=== PATIENT | male | born 1935 | race Caucasian/White ===

== ENCOUNTER 2023-12-14 11:51 | Emergency (ER) | payer OTHER, SELFPAY ==
[2023-12-14 11:56] VITALS: BP 176/105
[2023-12-14 13:49] LABS: % Basophils 0.7 % (0-2); % Eosinophils 1.3 % (0-6); % Immature Granulocytes 0.4 % (0-0.5); % Lymphocytes 16.5 % (20.5-51.1); % Monocytes 11.1 % (1.7-9.3); Absolute Basophils 0.1 10^3/uL (0-0.2); Absolute Eosinophils 0.1 10^3/uL (0-0.7); Absolute Lymphocytes 1.2 10^3/uL (1.2-3.4); Absolute Monocytes 0.8 10^3/uL (0.1-0.6); Absolute Neutrophils 4.9 10^3/uL (1.4-6.5); Mean Corp Hgb Conc. 33.3 g/dL (33.0-37.0); Mean Corpuscular Hgb 29.8 pg (27.0-31.0); Mean Corpuscular Volume 89.3 fL (80.0-94.0); Mean Platelet Volume 11.7 fL (7.4-10.4); Nucleated Red Blood Cells % 0 % (-); Platelet Count 166 10^3/uL (130-400); Red Blood Cell Count 5.04 10^6/uL (4.70-6.10); Red Cell Dist. Width 12.6 % (11.5-14.5)
[2023-12-14 14:29] LABS: ALT (SGPT) 29 U/L (0-50); AST (SGOT) 29 U/L (17-59); Albumin 4.7 g/dl (3.5-5.0); Alkaline Phosphatase 79 U/L (38-126); Blood Urea Nitrogen 34 mg/dl (9-20); Carbon Dioxide 25 mmol/L (22-30); Chloride 103 mmol/L (98-107); Glucose 167 mg/dl (70-99); Potassium 4.6 mmol/L (3.5-5.1); Sodium 142 mmol/L (135-145); Total Bilirubin 0.5 mg/dl (0.2-1.3); Total Protein 7.2 g/dl (6.3-8.2); eGFR 44.78
--- NOTE | 2023-12-14 14:36 | ED.GENMED ---
History of Present Illness
<SANDER Garcia - Last Filed: 12/15/23 07:09>
General
Chief Complaint: Cardiac Symptoms
Source: patient
Exam Limitations: none
Time Seen by Provider: 12/14/23 14:22
Nursing documentation reviewed up to this point in time: agreed with
History of Present Illness
History of Present Illness:
88-year-old male past medical history DE diabetes presents to the ER for evaluation. Patient was yesterday he was standing and suddenly developed brief sweating which lasted for seconds at a time and he checked his radial pulse and it was very
rapid. He had no pain. He had no further symptoms however wanted pt to be evaluated. HE had no associated chest pain with s/s. Pt reports he could tell his pulse was rapid by feeling his wrist but he did not have palpitations in his chest.
Past History
<SANDER Garcia - Last Filed: 12/15/23 07:09>
Past History
ED Past Medical History: CAD, HTN and Hypercholesterolemia
ED Past Surgical History: Cardiac
Social History
Tobacco: Non-smoker
Alcohol: Other
Drug: None
Personal:
Living: with family
Employment: Retired
Family History
Family History: Unable to obtain
Review of Systems
<SANDER Garcia - Last Filed: 12/15/23 07:09>
Review of Systems
Allergies reviewed?: Yes
All Other Systems: ROS reviewed and negative except as documented in HPI and ROS
Constitutional: Reports no symptoms
Respiratory: Reports no symptoms
Cardiac: Reports other ('rapid pulses' ); Denies chest pain or syncope
ABD/GI: Reports no symptoms
: Reports no symptoms
Musculoskeletal: Reports no symptoms
Skin: Reports no symptoms
Neurological: Reports no symptoms
Hematologic/Lymphatic: Reports no symptoms
Psychiatric: Reports no symptoms
Phy Exam
<SANDER Garcia - Last Filed: 12/15/23 07:09>
General Physical Exam
General Presentation: no apparent distress
General age: appears stated age
General Skin: warm and dry
General Habitus: elderly
General Mental: alert
General Hydration: appears well hydrated
Cardiovascular Exam
Cardiovascular Exam: regular rate/rhythm, no murmur and normal peripheral pulses
Pulmonary Exam
Pulmonary Exam: lungs clear and no respiratory distress
Neurological Exam
Neurological Exam: alert and oriented x3
Musculoskeletal Exam
Musculoskeletal Exam: full ROM
Skin Exam
Skin Exam: normal color and warm/dry
Psychiatric Exam
Psychiatric Exam: normal mood/affect
Course
<SANDER Garcia - Last Filed: 12/15/23 07:09>
Orders/Labs/Results
Orders:
Orders
12/14/23 11:52
Electrocardiogram (*1) Urgent
Reason for Study: Chest Pain
EKG- Treatment ONCE
12/14/23 13:42
CMP [Comprehensive Metabolic Panel] Urgent
Complete Blood Count/With Diff Urgent
12/14/23 16:23
Add On- LAB Urgent
Tests Added?: troponin
12/14/23 16:24
0.9% Sodium Chloride 1000 ml [Nss] 1,000 ml IV BOLUS
12/14/23 16:37
Vital Signs- Treatment ONCE
Frequency: Once
12/14/23 16:52
Troponin I Urgent
Comment: COLLECT. NO GREEN TOP IN LAB.
Abnormal Lab Results
12/14/23
13:42
MPV 11.7 H fL
(7.4-10.4)
Absolute Monos (auto) 0.8 H 10^3/uL
(0.1-0.6)
Lymphocytes % 16.5 L %
(20.5-51.1)
Monocytes % 11.1 H %
(1.7-9.3)
BUN 34 H mg/dl
(9-20)
Creatinine 1.5 H mg/dL
(0.7-1.3)
Glucose 167 H mg/dl
(70-99)
12/14/23 13:42
12/14/23 13:42
Vital Signs
Initial and Last Documented VS:
Initial Vital Signs
Temp Pulse Resp BP Pulse Ox
97.8 F 96 16 176/105 97
12/14/23 11:56 12/14/23 11:56 12/14/23 11:56 12/14/23 11:56 12/14/23 11:56
Last Documented Vital Signs
Temp Pulse Resp BP Pulse Ox
97.8 F 68 16 158/96 98
12/14/23 11:56 12/14/23 18:00 12/14/23 18:00 12/14/23 18:00 12/14/23 18:00
<Jonathon Bruce PA-C - Last Filed: 12/14/23 19:47>
Orders/Labs/Results
Orders:
Orders
12/14/23 11:52
Electrocardiogram (*1) Urgent
Reason for Study: Chest Pain
EKG- Treatment ONCE
12/14/23 13:42
CMP [Comprehensive Metabolic Panel] Urgent
Complete Blood Count/With Diff Urgent
12/14/23 16:23
Add On- LAB Urgent
Tests Added?: troponin
12/14/23 16:24
0.9% Sodium Chloride 1000 ml [Nss] 1,000 ml IV BOLUS
12/14/23 16:37
Vital Signs- Treatment ONCE
Frequency: Once
12/14/23 16:52
Troponin I Urgent
Comment: COLLECT. NO GREEN TOP IN LAB.
Abnormal Lab Results
12/14/23
13:42
MPV 11.7 H fL
(7.4-10.4)
Absolute Monos (auto) 0.8 H 10^3/uL
(0.1-0.6)
Lymphocytes % 16.5 L %
(20.5-51.1)
Monocytes % 11.1 H %
(1.7-9.3)
BUN 34 H mg/dl
(9-20)
Creatinine 1.5 H mg/dL
(0.7-1.3)
Glucose 167 H mg/dl
(70-99)
12/14/23 13:42
12/14/23 13:42
Vital Signs
Initial and Last Documented VS:
Initial Vital Signs
Temp Pulse Resp BP Pulse Ox
97.8 F 96 16 176/105 97
12/14/23 11:56 12/14/23 11:56 12/14/23 11:56 12/14/23 11:56 12/14/23 11:56
Last Documented Vital Signs
Temp Pulse Resp BP Pulse Ox
97.8 F 68 16 158/96 98
12/14/23 11:56 12/14/23 18:00 12/14/23 18:00 12/14/23 18:00 12/14/23 18:00
<SANDER Garcia - Last Filed: 12/15/23 07:09>
MDM/Problems Addressed
MDM/Problems Addressed:
Patient is a an 88-year-old male who as documented had a brief episode of sweating yesterday and then felt his pulse which was rapid. He reports initially he was concerned about his high heart rate though he did not necessarily feel palpitations.
He had no chest pain. That resolved quickly yesterday and he has had no symptoms but found out and encourage patient to come to the ER. He presents awake alert no acute distress asymptomatic. His heart rate is in the 90s and he reports it
normally is lower. He denies any recent illness fever chills he did have COVID a week and a half ago. He had no associated shortness of breath and is not short of breath now. He is not tachycardic normal white count stable hemoglobin however his
BUN and creatinine are slightly increased. Will check troponin for the episode of sweating though unlikely cardiac will hydrate patient and plan for discharge with outpatient follow-up with family doctor and quality assurance supervisor final (he follows with DR Alejo
) EKG does show a right bundle branch block will have patient follow-up
<SANDER Garcia - Last Filed: 12/15/23 07:09>
*Pulse Oximetry
Patient hypoxic: no
*EKG
Interpreted by ED Provider?: Yes
Comparison EKG: no comparison EKG present
Heart Rate: 95
Rhythm: sinus
QRS Pattern: right bundle branch block
<Jonathon Bruce PA-C - Last Filed: 12/14/23 19:47>
*Critical Care Note
Total Time (30-74mins, 75-104mins- exclusive of procedures): Not Applicable
<Jonathon Bruce PA-C - Last Filed: 12/14/23 19:47>
Update Note
Update Note:
Assumed care of pt from Jovita Granger PA-C at shift change 1700, pending repeat trop. Pt's symptoms stable, repeat troponin negative, stable for d/c
ED Attending Note
<SANDER Garcia - Last Filed: 12/15/23 07:09>
-
Portions of this chart may have been created with voice recognition software.� Occasional wrong word or��sound alike� substitutions may have occurred due to the inherent limitations of voice recognition software.
Discharge Plan
Departure
Patient Disposition: Home (Routine Discharge)
Date of Disposition: 12/14/23
Time of Disposition: 18:06
Patient with high blood pressure during this ER visit?: Yes
Discharge Problem:
Heart palpitations
Instructions: BLOOD PRESSURE
Prescriptions:
No Action
naproxen sodium [Aleve] 220 MG tablet
220 mg PO BID
hydrocodone-acetaminophen 1 TABLET tablet
1 - 2 tab PO Q4HPRN PRN (Reason: moderate to severe pain) Qty: 10 0RF
Referrals:
Bernard Cardozo DO [Family Provider] -
Juan José Alejo MD [Active] -
Jovita Granger CRNP [Emergency Midlevel Provider] -
Activity Restrictions/Additional Instructions:
As discussed your kidney function is mildly elevated. Please increase fluids and have your family doctor re- check your your blood work . Follow-up with quality assurance supervisor final for symptoms also on your EKG there is a right bundle branch block which is new
which will need further evaluation.
Return if any worsening of symptoms including shortness breath chest pain worsening palpitations.
Interventions
Interventions:
*Risk Screen - Suicide Last Done: 12/14/23 11:56
*General Assessment Last Done: 12/14/23 16:37
*Neglect/Abuse Screening Last Done: 12/14/23 11:56
Discharge Date and Time
Print Language: [place]
[2023-12-14 16:38] VITALS: BP 155/99
[2023-12-14 16:43] VITALS: BP 155/99
[2023-12-14 17:02] VITALS: BP 148/105
[2023-12-14] MEDS: NSS 1000 IV (17:06)
[2023-12-14 17:41] LABS: Troponin I < 0.012 ng/ml
[2023-12-14 18:00] VITALS: BP 158/96
[2023-12-14 18:15] VITALS: BP 147/83
== END 2023-12-14 18:15 | disposition home or self-care (01) ==
LOC: EMR 11:51
PROVIDERS: Emergency Medicine; EMERGENCY PHYSICIAN Emergency Medicine; FAMILY PHYSICIAN Internal Medicine
DX: R00.2 Palpitations (principal); R61 Generalized hyperhidrosis; I45.10 Unspecified right bundle-branch block; I25.10 Atherosclerotic heart disease of native coronary artery without angina pectoris; I10 Essential (primary) hypertension; E78.00 Pure hypercholesterolemia, unspecified; E11.9 Type 2 diabetes mellitus without complications; M19.90 Unspecified osteoarthritis, unspecified site; I25.2 Old myocardial infarction; Z86.16 Personal history of COVID-19; Z87.891 Personal history of nicotine dependence; Z88.5 Allergy status to narcotic agent; Z88.8 Allergy status to other drugs, medicaments and biological substances
CPT/HCPCS: 99284; 96360; 80053; 84484; 85025; 93005